=== PATIENT | male | born 1975 | race African-American/Black ===

== ENCOUNTER 2018-04-06 18:01 | Emergency (ER) | payer SELFPAY ==
[~2018-04-06] VITALS: Ht 167.6 cm; Wt 77.1 kg
--- NOTE | 2018-04-06 18:27 | ED Respiratory ---
General Chief Complaint: Respiratory Problems Stated Complaint: SOB Source: patient Exam Limitations: no limitations History of Present Illness Date Seen by Provider: Apr 06, 2018 Time Seen by Provider: 18:27 Initial Comments Patient is a 43 year old male who presents to the emergency room with complains of shortness of breath and wheezing. He reports that this started yesterday. He reports that he has a long history of asthma and is out of his medications. He does not have a PCP and frequents the ER for the treatment of his asthma. Timing/Duration: yesterday Prior Episodes/Possible Cause: frequent episodes Associated Symptoms: shortness of breath, wheezing Allergies and Home Medications Allergies Coded Allergies: No Known Drug Allergies (Unverified , 04/06/18) Home Medications Prednisone 20 Mg Tab, 40 MG PO DAILY Prescribed by: ANMOL ABEBE on 04/06/181924 Patient Home Medication List Home Medication List Reviewed: Yes Review of Systems Review of Systems Constitutional: see HPI; No chills, No fever Respiratory: see HPI, short of breath, wheezing All Other Systems Reviewed Negative Unless Noted: Yes Past Jtaontu-Lfzndm-Lzhhlm Hx Patient Social History Recent Foreign Travel: No Contact w/Someone Who Travel: No Physical Exam Vital Signs - First Documented 04/06/18 18:26 Temp 97.0 Pulse 60 Resp 20 B/P (MAP) 125/91 (102) Pulse Ox 98 O2 Delivery Room Air Capillary Refill : Height: '" Weight: lbs. oz. kg; BMI Method: General Appearance: WD/WN, no apparent distress HEENT: PERRL/EOMI, normal ENT inspection, TMs normal, pharynx normal Neck: non-tender, full range of motion, supple, normal inspection, carotid bruit Respiratory: chest non-tender, no respiratory distress, no accessory muscle use , wheezing (throught lung feilds.) Cardiovascular: normal peripheral pulses, regular rate, rhythm, no edema, no gallop, no JVD, no murmur Progress/Results/Core Measures Suspected Sepsis SIRS Temperature: Pulse: Respiratory Rate: Blood Pressure / Mean: Results/Orders My Orders Orders - ANMOL ABEBE Albuterol/Ipra Inhalation Soln (Duoneb I (04/06/18 18:30) Svn Small Volume Nebulizer (04/06/18 18:24) Rx-Albuterol Inhaler (Rx-Proair) (04/06/18 19:19) Rx-Albuterol Nebs (Rx-Proventil Nebs) (04/06/18 19:19) Medications Given in ED Vital Signs/I&O 04/06/18 04/06/18 04/06/18 18:26 18:37 19:44 Temp 97.0 97.0 Pulse 60 60 Resp 20 20 B/P (MAP) 125/91 (102) 125/91 (102) Pulse Ox 98 100 100 O2 Delivery Room Air Room Air Room Air Capillary Refill : Progress Note : Time: 19:22 Progress Note I have seen and evaluated the patient. He is improved from the breathing treatment in the emergency room. He refused the chest x-ray. He reports that he does not have a primary care provider intention of getting one. He will be sent home with Ventolin inhaler, Ventolin nebulizers, and a prescription for prednisone. Departure Impression Primary Impression: Exacerbation of asthma Disposition: HOME, SELF-CARE Condition: Stable/Unchanged Departure-Patient Inst. Decision time for Depature: 19:23 Referrals: NO,LOCAL PHYSICIAN (PCP) Primary Care Physician Patient Instructions: Asthma, Adult (DC), LOCAL PHYSICIAN LIST Add. Discharge Instructions: Take medications as directed. Follow up with a primary care provider within 1 week for recheck. I provided you a list of providers to be established with. Return back to the emergency room for any worsening symptoms or concerns as needed. All discharge instructions reviewed with patient and/or family. Voiced understanding. Scripts Prednisone (Prednisone) 20 Mg Tab 40 MG PO DAILY for 4 Days, #8 TAB Prov: ANMOL ABEBE 04/06/18 ANMOL ABEBE Apr 06, 2018 18:27
[2018-04-06] MEDS ORDERED: RT-ALBUTEROL/IPRATROPIUM 3 ML (DUONEB) VIAL INH ONE (18:30)
[2018-04-06] MEDS ORDERED: RX-ALBUTEROL INHALER (PROAIR) 8 GM IH STA (19:19)
[2018-04-06] MEDS ORDERED: RX-ALBUTEROL NEB 2.5 MG/3 ML PACK #5 IH STA (19:19)
[2018-04-06] MEDS ORDERED: PRD20T PO (19:25)
[2018-04-06 19:44] VITALS: BP 125/91
== END 2018-04-06 19:45 | disposition home or self-care (01) ==
LOC: ER 18:03
DX: J45.901 Unspecified asthma with (acute) exacerbation (principal); Z79.52 Long term (current) use of systemic steroids
CPT/HCPCS: 94640; 99283

== ENCOUNTER 2018-11-01 02:49 | Emergency (ER) | payer OTHER ==
[~2018-11-01] VITALS: Ht 175.3 cm; Wt 77.1 kg
[~2018-11-01 02:49] MED LIST: PRD20T PO
--- NOTE | 2018-11-01 03:49 | ED Respiratory ---
General Chief Complaint: Respiratory Problems Stated Complaint: PROBLEMS BREATHINS Source: patient History of Present Illness Date Seen by Provider: Nov 01, 2018 Time Seen by Provider: 03:40 Initial Comments PT STATES "I NEED TO GET OUT OF HERE REAL QUICK--I GOT SOMEBODY THAT CAN'T STAY BY THEIRSELF" "I JUST NEED A REAL QUICK BREATHING TREATMENT AND A PRESCRIPTION FOR ALBUTEROL AND I'LL BE OUT OF HERE" STATES "I DO THIS ALL THE TIME IN JOIN" REPEATS THIS MULTIPLE TIMES PT IS VERY VAGUE AND DOES NOT WANT TO ANSWER MANY QUESTIONS--STATES "HOW MUCH LONGER IS THIS GOING TO TAKE--I NEED TO GET OUT OF HERE" PT CLAIMS HE HAS ASTHMA AND HAS HAD IT "'ALL MY LIFE" PT HAS NEVER HAD A PCP AND REFUSES TO GET ONE--STATES HE GOES TO ER'S AND "THEY ALWAYS GIVE ME A BREATHING TREATMENT AND A PRESCRIPTION" PT WAS HERE 03/2018 FOR EXACT SAME COMPLAINT PT IS HOMELESS PT SMOKES 1 PPD, AND ALSO ADMITS TO MARIJUANA USE "IN THE PAST" Allergies and Home Medications Allergies Coded Allergies: No Known Drug Allergies (Unverified , 04/06/18) Home Medications Prednisone 20 Mg Tab, 40 MG PO DAILY Prescribed by: ANMOL ABEBE on 04/06/181924 Patient Home Medication List Home Medication List Reviewed: Yes Review of Systems Review of Systems Constitutional: No fever; other (DOESN'T WANT TO ANSWER MOST QUESTIONS) Respiratory: cough ("ONCE IN AWHILE"), short of breath Past Wsqumql-Zxkcuu-Wfatmm Hx Patient Social History Alcohol Use: Denies Use Recreational Drug Use: Yes (THC) Drug of Choice: THC Smoking Status: Current Everyday Smoker (1 PPD) Type Used: Cigarettes (1 PPD) 2nd Hand Smoke Exposure: Yes Recent Foreign Travel: No Contact w/Someone Who Travel: No Recent Hopitalizations: No Immunizations Up To Date Tetanus Booster (TDap): Unknown Seasonal Allergies Seasonal Allergies: Yes Past Medical History Surgeries: No Respiratory: Yes Asthma Cardiac: No Neurological: No Genitourinary: No Gastrointestinal: No Musculoskeletal: No Endocrine: No HEENT: Yes (LEFT CORNEA OPACIFIED) Cancer: No Psychosocial: No Integumentary: No Blood Disorders: No Physical Exam Capillary Refill : Height: 5'6.00" Weight: 170lbs. oz. 77.944670qz; BMI Method:Stated General Appearance: WD/WN, no apparent distress, thin, other (TALKS VERY RAPIDLY IN FULL SENTENCES, UNKEMPT, MALODOROUS, REEKS OF CIGARETTES. OCCASIONAL DRY COUGH WITH NEB TTEATMENT ONLY. ) HEENT: TMs normal, pharynx normal, other (LEFT CORNEA OPACIFIED. POOR DENTITION WITH MULTIPLE MISSING TEETH) Neck: normal inspection Respiratory: normal breath sounds, no respiratory distress, no accessory muscle use; No wheezing Cardiovascular: regular rate, rhythm, no murmur Extremities: normal inspection, no pedal edema, normal capillary refill Neurologic/Psychiatric: [place] II-XII nml as tested, no motor/sensory deficits, alert, oriented x 3 Skin: normal color (PT IS BLACK), warm/dry Progress/Results/Core Measures Suspected Sepsis SIRS Temperature: Pulse: Respiratory Rate: Blood Pressure / Mean: Results/Orders My Orders Orders - ISADORA VIDES DO Hypertonic Saline 3% Neb (Rt-Hypertonic (11/01/18 04:00) Rt Request For Service (11/01/18 03:46) Vital Signs/I&O Capillary Refill : Progress Note : Progress Note ADVISED PT THAT I WOULD NOT BE GIVING HIM ANY PRESCRIPTIONS, AND HE NEEDED TO ESTABLISH WITH A PCP SOMEWHERE FOR ONGOING MEDICAL CARE AND THAT ER WAS NOT FOR PRIMARY CARE--INFORMATION GIVEN FOR LOCAL PHYSICIANS AND [facility] [place], WELL VARIOUS FACILITIES IN [facility] THAT OFFERED REDUCED COSTS OR FREE CARE--PT IS NOT INTERESTED IN ANY OF THIS INFORMATION PT DEMANDING A NEB TREATMENT--EVEN THOUGH I ADVISED PT THAT HIS LUNGS WERE CLEAR AND HIS O2 SAT WAS 100% AND HE WAS NOT HAVING ANY DIFFICULTY BREATHING AT THIS TIME--HE CONTINUES TO DEMAND A BREATHING TREATMENT--GIVEN SALINE NEB TREATMENT AND PT IMMEDIATELY WANTING TO LEAVE--PT THEN QUICKLY LEFT ER WITHOUT DISCHARGE INSTRUCTIONS OR CHECKING OUT WITH REGISTRATION O2 SATS 99-100% THROUGHOUT ER STAY Departure Impression Primary Impression: SELF REPORTED HX OF ASTHMA Additional Impression: Smoker Disposition: 01 HOME, SELF-CARE Condition: Stable Departure-Patient Inst. Referrals: NO,LOCAL PHYSICIAN (PCP/Family) Primary Care Physician Patient Instructions: Quitting Smoking, Smoking: Not Just Harmful to Your Lungs and Heart Add. Discharge Instructions: FOLLOW UP WITH OF CHOICE NEXT WEEK FOR FURTHER CARE--CALL ON SATURDAY TO MAKE APPOINTMENT All discharge instructions reviewed with patient and/or family. Voiced understanding. Work/School Note: [employer]ing ISADORA VIDES DO Nov 01, 2018 03:49
[2018-11-01 04:00] VITALS: BP 136/104
[2018-11-01] MEDS ORDERED: RT-HYPERTONIC SALINE 3% 4 ML NEB INH ONE (04:00)
== END 2018-11-01 04:06 | disposition home or self-care (01) ==
LOC: EDUNIT# 02:49 → ER 02:52
DX: J45.909 Unspecified asthma, uncomplicated (principal); F12.10 Cannabis abuse, uncomplicated; F17.210 Nicotine dependence, cigarettes, uncomplicated; Z59.0 Homelessness; Z79.52 Long term (current) use of systemic steroids
CPT/HCPCS: 94640; 99282

== ENCOUNTER → 2018-12-27 | Emergency (ER) | payer SELFPAY ==
[~2018-12-27] VITALS: Ht 175.3 cm; Wt 79.4 kg
[~2018-12-27] MED LIST changes: +RT-ALBUTEROL/IPRATROPIUM 3 ML (DUONEB) VIAL INH ONE; +RT-SODIUM CHL INHALATION 3 ML VIAL IH ONE
--- NOTE | 2018-12-27 01:48 | NUR ---
pt here with " ". pt alert gc 15. pt has h/o asthma and ran out of his inhaler and nebs. pt been c/o dyspnea x 2 days. no acute sighns of dyspnea noted though resp shallow nonlabored. no accesoory muscle use or cyanosis or duskiness noted. pt has dry nonproductive cough in er and is a smoker. pt denies chest and abd pain. denies n/v/d. lungs exp wheezes and decreased aeration bilaterally. none audible. abd w/o pain with palpation. done iam pt at 0152.
--- NOTE | 2018-12-27 02:12 | ED Respiratory ---
General Chief Complaint: Respiratory Problems Stated Complaint: SOB Nursing Triage Note: pt ran out of asthma medicines and c/o dyspnea x 2 days Allergies and Home Medications Allergies Coded Allergies: No Known Drug Allergies (Unverified , 04/06/18) Home Medications Prednisone 20 Mg Tab, 40 MG PO DAILY Prescribed by: ANMOL ABEBE on 04/06/181924 Past Aekytrh-Ydgbhc-Jhjpwb Hx Patient Social History Alcohol Use: Denies Use Recreational Drug Use: No Drug of Choice: THC Smoking Status: Current Everyday Smoker Type Used: Cigarettes 2nd Hand Smoke Exposure: Yes Recent Foreign Travel: No Contact w/Someone Who Travel: No Recent Infectious Disease Expo: No Recent Hopitalizations: No Physical Abuse: No Sexual Abuse: No Immunizations Up To Date Tetanus Booster (TDap): Unknown Seasonal Allergies Seasonal Allergies: Yes Past Medical History Surgeries: No Respiratory: Yes Asthma Cardiac: No Neurological: No Genitourinary: No Gastrointestinal: No Musculoskeletal: No Endocrine: No HEENT: Yes (LEFT CORNEA OPACIFIED) Cancer: No Psychosocial: No Integumentary: No Blood Disorders: No Physical Exam Vital Signs - First Documented 12/27/18 01:58 Temp 97.8 Pulse 68 Resp 20 B/P (MAP) 126/91 (103) Capillary Refill : Less Than 3 Seconds Height: 5'9.00" Weight: 175lbs. oz. 79.972575jz; BMI Method:Stated Progress/Results/Core Measures Suspected Sepsis Recent Fever Within 48 Hours: No Infection Criteria Present: None New/Unexplained Altered Menta: No Sepsis Screen: No Definite Risk SIRS Temperature:97.8 Pulse: 68 Respiratory Rate: 20 Blood Pressure 126 /91 Mean: 103 Results/Orders My Orders Orders - ISADORA VIDES DO Albuterol/Ipra Inhalation Soln (Duoneb I (12/27/18 02:15) Rt Request For Service (12/27/18 02:07) Svn Small Volume Nebulizer (12/27/18 02:07) Sodium Chl Inhalation (Rt-Sodium Chl Inh (12/27/18 02:15) Svn Small Volume Nebulizer (12/27/18 02:09) Vital Signs/I&O 12/27/18 01:58 Temp 97.8 Pulse 68 Resp 20 B/P (MAP) 126/91 (103) Capillary Refill : Less Than 3 Seconds Blood Pressure Mean: 103 Departure Impression Primary Impression: SELF REPORTED HX OF ASTHMA Additional Impressions: Smoker Non-compliance Disposition: 01 HOME, SELF-CARE Condition: Stable Departure-Patient Inst. Referrals: NO,LOCAL PHYSICIAN (PCP/Family) Primary Care Physician Patient Instructions: Quitting Smoking, Smoking: Not Just Harmful to Your Lungs and Heart Add. Discharge Instructions: FOLLOW UP WITH OF CHOICE FOR FURTHER CARE--CALL IN AM TO SCHEDULE AN APPOINTMENT TO ESTABLISH CARE NO SMOKING!!! All discharge instructions reviewed with patient and/or family. Voiced understanding. ISADORA VIDES DO Dec 27, 2018 02:12
[2018-12-27 03:11] VITALS: BP 135/97
--- NOTE | 2018-12-27 03:11 | NUR ---
d/c instructions to pt. told to read all papers. no scripts given. pt left ambulatory with . pt knows f/u. i went over the handtyped by information on the chart. pt had no iv. pt became irate loud and beligerent at d/c. requested another neb tx and or scripts. said no to both. requested paper that said we did nneb. request denies by br. pt refused to sighn d/c paper. pt with no acute sighns of dyspnea noted. pt with inc. aeration pt still had faint slight wheezes apex left side only.
== END | disposition home or self-care (01) ==
LOC: EDUNIT# 01:42 → ER 01:44
DX: J45.909 Unspecified asthma, uncomplicated (principal); F17.210 Nicotine dependence, cigarettes, uncomplicated; Z91.19 Patient's noncompliance with other medical treatment and regimen; Z79.52 Long term (current) use of systemic steroids
CPT/HCPCS: 94640; 99282